=== PATIENT | male | born 1985 | race Caucasian/White ===

== ENCOUNTER 2019-08-04 10:55 | Outpatient (RCR) | payer BC, MEDICAID, SELFPAY | END 2020-01-01 11:05 | disposition home or self-care (01) | LOC: ANHAUDIO 10:55 | DX: Z46.1 Encounter for fitting and adjustment of hearing aid (principal) | CPT/HCPCS: 99002 ==

== ENCOUNTER 2021-04-11 11:19 | Outpatient (CLI) | payer OTHER, MEDICAID, SELFPAY | END 2021-04-11 11:20 | disposition home or self-care (01) | LOC: ANHAUDIO 11:22 | PROVIDERS: PCP Internal Medicine; Visit Provider Internal Medicine | DX: H90.3 Sensorineural hearing loss, bilateral (principal) | CPT/HCPCS: 92553; 92555; 92567 ==

== ENCOUNTER 2021-07-08 12:53 | Outpatient (RCR) | payer OTHER, MEDICAID, SELFPAY | END 2021-07-08 23:59 | disposition home or self-care (01) | LOC: ANHAUDIO 12:53 | PROVIDERS: PCP Internal Medicine; Visit Provider Internal Medicine | DX: Z46.1 Encounter for fitting and adjustment of hearing aid (principal) | CPT/HCPCS: V5160; V5261; V5264 ==

== ENCOUNTER 2023-09-05 19:59 | Inpatient (IN) | payer MEDICARE, OTHER, MEDICAID, SELFPAY ==
[2023-09-05] VITALS (19 sets, daily range): BP systolic 123–146; BP diastolic 85–94; PULSE 111–146; RESP 23–40; TEMP 36.5; O2SAT 90–100
--- NOTE | ~2023-09-05 | XR_ITS ---
XR chest 1V portable 09/05/2023 21:16 Indication: Dyspnea. Covid positive. Procedure: AP portable chest Comparison: No prior studies for comparison. Findings: Bilateral perihilar interstitial infiltrates. No pleural effusion or pneumothorax. Cardiome angel. Impression: 1: Bilateral perihilar interstitial infiltrates which may reflect mild edema or pneumonia. Reviewed, dictated and finalized at location [facility] [employer] [employer] Impression: 1: Bilateral perihilar interstitial infiltrates which may reflect mild edema or pneumonia.
--- NOTE | ~2023-09-05 | CT_ITS ---
Clinical Indication: Dyspnea CT Scan of the Chest with Contrast: Technique: Contiguous sections were acquired throughout the chest after intravenous administration of 100 cc of Omnipaque 350. Dose reduction technique was used on this scan by utilizing automated expos ure control and iterative reconstruction technique. The dose-length product (DLP) was 614.99 mGy-cm. Findings: There are mildly prominent bilateral axillary lymph nodes, nonspecific. No mediastinal or hilar lymph adenopathy. No large central pulmonary embolus seen. Respiratory motion artifact limits evaluation fo r smaller, more distal pulmonary emboli. There is no evidence of aortic dissection or aneurysm. Reflu x of contrast into the IVC noted. There is no evidence of pleural or pericardial effusion. There is extensive, patchy groundglass pulmonary disease. Images through the upper abdomen reveal no abnormalities. Impression: No large central pulmonary embolus seen. Respiratory motion artifact limits evaluation for smaller, m ore distal pulmonary emboli. Probable extensive groundglass pulmonary disease. Likely diagnostic positions include infectious etio logies, pulmonary edema, or other inflammatory conditions., Correlation required. Reflux of contrast into the IVC can be seen in the setting of right heart dysfunction. Correlate clin ically. Reviewed, dictated and finalized at location . [facility] Impression: No large central pulmonary embolus seen. Respiratory motion artifact limits ravi luation for smaller, more distal pulmonary emboli. Probable extensive groundglass pulmonary disease. Likely diagnostic positions i nclude infectious etiologies, pulmonary edema, or other inflammatory conditions ., Correlation required. Reflux of contrast into the IVC can be seen in the setting of right heart dysfu nction. Correlate clinically.
--- NOTE | 2023-09-05 20:53 | ECG_ITS ---
Measurements Intervals [place] Rate: 140 P: ME: 0 QRS: 174 QRSD: 103 T: -10 QT: 301 QTc: 461 Interpretive Statements SUPRAVENTRICULAR TACHYCARDIA INDETERMINATE AXIS INCOMPLETE RIGHT BUNDLE BRANCH BLOCK [90+ ms QRS DURATION, TERMINAL R IN V1/V2, 40+ ms S IN I/aVL/V4/V5/V6] POOR R-WAVE PROGRESSION ABNORMAL ECG NO PREVIOUS ECG AVAILABLE FOR COMPARISON Electronically Signed On 09-06-2023 15:04:34 MANAGER PATIENT by Phani Menon M.D.
[2023-09-05 21:02] LABS: Basophils Absolute Auto 0.1 K/mm3 (0.0-0.1); Basophils Percent Auto 0.4 % (0.2-1.2); Hematocrit 44.7 % (42.0-52.0); Hemoglobin 15.3 g/dL (14.0-18.0); Immature Granulocyte Absolute 0.16 K/mm3 (0.00-0.031); Immature Granulocyte Percent A 0.8 % (0-0.5); Lymphocytes Absolute Auto 0.74 K/mm3 (0.9-3.2); Lymphocytes Percent Auto 3.8 % (18.3-44.2); Mean Corpuscular HGB Conc 34.2 g/dl (32-36); Mean Corpuscular Hemoglobin 29.4 pg (26-34); Mean Corpuscular Volume 85.8 fl (80-100); Mean Platelet Volume 10.1 fl (7.4-10.4); Monocytes Absolute Auto 1.7 K/mm3 (0.1-0.6); Monocytes Percent Auto 8.7 % (2.6-8.5); Neutrophils Percent Auto 86.3 % (45.5-73.1); Platelet Count Result 263 k/mm3 (150-375); Red Blood Count 5.21 M/mm3 (4.6-6.20); Red Cell Distribution Width 12.7 % (11.5-14.5); White Blood Count 19.7 K/mm3 (4.5-10.0)
[2023-09-05 21:21] LABS: Alanine Aminotransferase 19 U/L (6-50); Albumin Level 4.1 g/dL (3.5-5.1); Alkaline Phosphatase 87 U/L (38-126); Anion Gap 14 mmol/L (8-16); Aspartate Amino Transferase 26 U/L (17-59); Bilirubin,Total 2.6 mg/dL (0.2-1.3); Blood Urea Nitrogen 17 mg/dL (9-20); Calcium 8.4 mg/dL (8.4-10.2); Carbon Dioxide 18 mmol/L (22-30); Chloride 102 mmol/L (98-107); Estimated CRCL calculation 64 ml/min; Estimated Glomerular Filt Rate > 60; Glucose 214 mg/dL (65-110); Potassium 3.2 mmol/L (3.4-5.0); Sodium 134 mmol/L (137-145)
[2023-09-05 21:22] LABS: Influenza A QL RT-PCR Negative (Negative); Influenza B QL RT-PCR Negative (Negative); RSV RNA, RT-PCR Negative (Negative); SARS-CoV-2 RNA PCR Negative (Negative)
[2023-09-05] MEDS: SODIUM CHLORIDE 0.9% IV 1,000 ML 999 ML IV CONT ×3 (21:25→22:34)
[2023-09-05 21:34] LABS: Alveolar/Arterial O2 Gradient 94.9 mmHg; Fractional Inspired Oxygen 28 %; HCO3 ABG 19.3 mEq/l (22.0-26.0); Oxygen Content ABG 20.1 %vol (16.0-22.0); Oxygen Saturation ABG 96.3 % (95.0-100.0); Oxyhemoglobin 94.1 % THb (90.0-100.0); PCO2 ABG 25.3 mmHg (35.0-45.0); PO2 ABG 74.9 mmHg (80.0-100.0); PO2 FiO2 Ratio Arterial Blood 2.67 %; Total Hemoglobin 15.2 g/dL (12.0-18.0); pH ABG 7.501 (7.350-7.450)
[2023-09-05 21:37] LABS: Device NASAL CANNULA; Modified Allen's Test Pass; Site Drawn RIGHT RADIAL
[2023-09-05 22:04] LABS: INR 1.3; Partial Thromboplastin Time 31.6 SECONDS (22.3-36.8)
[2023-09-05 22:15] LABS: Lactic Acid Reflex 1.7 mmol/L (0.7-2.0); Magnesium 1.9 mg/dL (1.6-2.3)
[2023-09-05 22:34] LABS: NT Pro B Type Natriuretic Pept 10300 pg/mL (19.9-100); Procalcitonin 1.7 ng/mL; Troponin I 0.431 ng/mL (0.000-0.034)
[2023-09-05] MEDS: AZITHROMYCIN 500 MG/NS 250 ML 500 MG/250 ML BAG 250 MG IVPB (23:37)
[2023-09-06] VITALS (82 sets, daily range): BP systolic 104–142; BP diastolic 72–94; PULSE 84–120; RESP 20–42; TEMP 36.3; O2SAT 94–100; BMI 31.8
--- NOTE | 2023-09-06 | ECG_ITS ---
Measurements Intervals [place] Rate: 109 P: 13 IL: 143 QRS: 24 QRSD: 123 T: -12 QT: 372 QTc: 502 Interpretive Statements SINUS TACHYCARDIA POSSIBLE LEFT ATRIAL ENLARGEMENT [-0.1mV P-WAVE IN V1/V2] INDETERMINATE AXIS INCOMPLETE rIGHT BUNDLE BRANCH BLOCK [120+ ms QRS DURATION, UPRIGHT V1, 40+ ms S IN I/aVL/V4/V5/V6] ABNORMAL ECG COMPARED TO ECG 09/05/2023 20:55:30 SINUS RHYTHM REPLACES SVT Electronically Signed On 09-06-2023 15:06:32 SHROUD LINE TIER by Phani Menon M.D.
--- NOTE | 2023-09-06 | ECHO_ITS ---
Patient Info Name: Derick Eldridge Age: 37 years : 1985 Gender: Male Ht: 64 in Wt: 169 lbs BSA: 1.88 m2 HR: 96 bpm BP: 118 / 78 mmHg Heart Rhythm: Sinus Rhythm Technical Quality: Poor Exam Date: 09/06/2023 1:33 PM Exam Location: Echo Lab Patient Status: Inpatient Admit Date: 09/06/2023 Staff Ordering Physician: Catalina Stewart DO Insurance Adjuster: Kaley Bales RDCS Attending Provider: Gilma Rodriguez DO Referring Physician: Pat SOMMERS; Exam Type: CA echo dop color flow w con Study Info Indications R06.02 - Shortness of breath Complete two-dimensional, color flow and Doppler transthoracic echocardiogram is performed with contrast to opacify the left ventricle and to improve the deliniation of the left ventricle endocardial borders. Contrast/Agitated Saline Contrast/Ag. Saline: Definity Amount: 4.00 ml Administered By: Kaley Bales RDCS Existing IV Access: Yes IV Access Condition: patent with no signs of infiltration Reason for Poor Study: poor echocardiographic windows Summary 1. Technically challenging exam/definity contrast utilized. 2. Normal left ventricular size and systolic function. 3. Right ventricular enlargement with reduced systolic function. 4. No obvious valvular abnormalities. Left Ventricle Left ventricular chamber dimension is normal. Left ventricular systolic function is normal, estimated at 60-65%. The left ventricular diastolic function is grade I diastolic dysfunction. Right Ventricle Right ventricular chamber dimension is moderately enlarged. Right ventricular systolic function is reduced. Left Atria Left atrial chamber dimension is normal. Right Atria Right atrial chamber dimension is not well visualized. Aortic Valve The aortic valve is normal. Pulmonic Valve The pulmonic valve is not well visualized. Mitral Valve The mitral valve has normal leaflets. Tricuspid Valve The tricuspid valve leaflets are not well visualized. Pericardium/Pleural The pericardium appears normal. Aorta The aortic root size at the sinus of Valsalva is normal. Left Ventricular Outflow Tract Name Value Normal LVOT 2D LVOT Diameter 1.98 cm LVOT Doppler LVOT Peak Gradient 5 mmHg LVOT Mean Gradient 3 mmHg LVOT VTI 21.52 cm LVOT VTI/AV VTI Ratio 1.01 LVOT Stroke Volume 66.47 ml LVOT CO 6.21 l/min LVOT CI 3.30 L/min/m2 Pulmonic Valve Name Value Normal RVOT Doppler RVOT Peak Gradient 1 mmHg PV Doppler PV Peak Gradient 2 mmHg Mitral Valve Name Value
--- NOTE | 2023-09-06 00:37 | ED.GENADULT ---
HPI - General Adult General Chief complaint: Shortness of Breath/Dyspnea Stated complaint: SOB, covid + Time Seen by Provider: 09/05/23 20:52 History of Present Illness HPI narrative: Patient is a 37-year-old gentleman who presents to the emergency department with chief complaint of cough shortness of breath tachycardia and positive COVID test at home. The patient went to a blue scan on night and started having cough shortness of breath since then the patient has progressed and gotten much worse the trimming caser notice that he was being very short of breath and was concerned and decided to bring him to the hospital after he tested positive for COVID-19 patient is not normally oxygen requiring and was 88% on room air upon initial arrival. Related Data Allergies Allergy/AdvReac Type Severity Reaction Status Date / Time No Known Allergies Allergy Verified 09/05/23 21:22 Review of Systems Review of Systems: A 10 system review of systems was completed on the patient and is negative except for what is stated in the HPI. Nursing and ancillary documentation was reviewed. Exam Narrative: GENERAL: Ill-appearing, well-nourished, and in mild acute respiratory distress. HEAD: Normocephalic, atraumatic. EYES: PERRLA and EOMI. ENT: Nares clear, no rhinorrhea or epistaxis. Mucous membranes moist. NECK: Supple. CHEST: Coarse breath sounds to auscultation. Mild respiratory distress. HEART: Tachycardia rate and rhythm. No murmur heard. Normal peripheral pulses. ABDOMEN: Soft, nontender, nondistended, normal active bowel sounds. EXTREMITIES: Normal range of motion. No edema. SKIN: Warm, dry, no rash. NEURO: No focal deficits. Alert and oriented x3. PSYCH: Normal mood and affect. Course Vital Signs Vital signs: Vital Signs Temperature 36.5 C 09/05/23 20:32 Pulse Rate 142 H 09/05/23 20:32 Respiratory Rate 35 H 09/05/23 20:32 Blood Pressure 146/87 H 09/05/23 20:32 Pulse Oximetry 91 09/05/23 20:32 Oxygen Delivery Room Air 09/05/23 20:32 Temperature 36.5 C 09/05/23 20:32 Pulse Rate 110 H 09/06/23 01:16 Respiratory Rate 34 H 09/06/23 01:16 Blood Pressure 142/93 H 09/06/23 01:16 Pulse Oximetry 95 09/06/23 01:16 Oxygen Delivery Nasal Cannula 09/05/23 20:50 Oxygen Flow Rate 2 09/05/23 20:50 Medical Decision Making Vital Signs Vital Signs: Vital Signs Temperature 36.5 C 09/05/23 20:32 Pulse Rate 142 H 09/05/23 20:32 Respiratory Rate 35 H 09/05/23 20:32 Blood Pressure 146/87 H 09/05/23 20:32 Pulse Oximetry 91 09/05/23 20:32 Oxygen Delivery Room Air 09/05/23 20:32 Temperature 36.5 C 09/05/23 20:32 Pulse Rate 110 H 09/06/23 01:16 Respiratory Rate 34 H 09/06/23 01:16 Blood Pressure 142/93 H 09/06/23 01:16 Pulse Oximetry 95 09/06/23 01:16 Oxygen Delivery Nasal Cannula 09/05/23 20:50 Oxygen Flow Rate 2 09/05/23 20:50 Lab Data 09/05/23 20:57 09/05/23 20:57 Labs: Lab Results 09/05/23 09/05/23 09/05/23 Range/Units 20:33 20:57 21:45 WBC 19.7 H (4.5-10.0) K/mm3 RBC 5.21 (4.6-6.20) M/mm3 Hgb 15.3 (14.0-18.0) g/dL Hct 44.7 (42.0-52.0) % MCV 85.8 (80-100) fl MCH 29.4 (26-34) pg MCHC 34.2 (32-36) g/dl RDW 12.7 (11.5-14.5) % Plt Count 263 (150-375) k/mm3 MPV 10.1 (7.4-10.4) fl Immature Gran % (Auto) 0.8 H (0-0.5) % Neut % (Auto) 86.3 H (45.5-73.1) % Lymph % (Auto) 3.8 L (18.3-44.2) % [place] % (Auto) 8.7 H (2.6-8.5) % Eos % (Auto) 0.0 (0-4.4) % Baso % (Auto) 0.4 (0.2-1.2) % Lymph # (Auto) 0.74 L (0.9-3.2) K/mm3 [place] # (Auto) 1.7 H (0.1-0.6) K/mm3 Eos # (Auto) 0.0 (0-0.3) K/mm3 Baso # (Auto) 0.1 (0.0-0.1) K/mm3 Abs Immat Gran (auto) 0.16 H (0.00-0.031) K/mm3 Absolute Neuts (auto) 17.0 H (1.3-6.7) K/mm3 Absolute Nucleated RBC 0.0 (0.0-0.012) K/mm3 Nucleated RBC % 0.0 (0.0-0.2)
[2023-09-06 02:04] LABS: Troponin I 0.385 ng/mL (0.000-0.034)
[2023-09-06] MEDS: ALBUTEROL SULFATE NEB 2.5 MG/3 ML INH INHALATION ×3 (02:07→21:11)
[2023-09-06] MEDS: IPRATROPIUM BR 0.02% INH SOLN 0.5 MG/2.5 ML VIAL INHALATION ×3 (02:07→21:15)
[2023-09-06] MEDS: POTASSIUM CHLORIDE 20 MEQ PACKET (FOR LIQUID) 40 MEQ PO (03:26)
[2023-09-06] MEDS: ASPIRIN 81 MG CHEWABLE TABLET 324 MG PO (03:27)
--- NOTE | 2023-09-06 03:44 | PM.IMHP ---
H&P: HPI History of Present Illness Date/Time: 09/06/23 03:44 Chief Complaint: Short of breath, COVID positive Narrative: 37-year-old male with past medical history of intellectual disability, obesity and chronic hearing loss who presented to the ER from assisted living due to shortness of breath and positive at home COVID test. The patient complaints of cough and shortness of breath. The patient went to a [employer] game on . After the game he began having cough and shortness of breath. His cough has progressively gotten worse. Tonight the staff at the living facility noticed that the patient started having coughing and output of his mouth that appeared somewhat brown in color. Patient is noted to have some small amount of bleeding from his left naris the time my evaluation. Patient does not usually wear oxygen at home but at home with satting 80% on room air. The staff brought him into the ER for evaluation. He denies any chest pain. He has been having some decreased oral intake. He has also been having 7-8 loose stools a day for the last couple of days. He denies any recent antibiotic use. His stools have been yellow and light in color. He denies any hematochezia or melena. He reports that he has been urinating I usual amount his urine has not been dark or foul-smelling. He denies any significant fever or chills. Source of information comes from ER report, patient report and patient's father who is at bedside. Patient provided permission to discuss his medical care for his father. Patient's father is his legal guardian. Despite is a intellectual disability the patient is a good historian. Review of Systems Review of Systems: 12 systems were reviewed with pertinent positives and negatives per HPI. Except as documented in the HPI, all other systems were reviewed and are negative. [facility] Past Medical History Medical History (Updated 09/06/23 @ 09:38 by Gilma Rodriguez DO) Hearing loss of both ears Since childhood possibly due to antibiotic use as preemie Intellectual disability Father reports history of anoxic brain injury at Obesity Surgical History Surgical History (Updated 09/06/23 @ 09:19 by Gilma Rodriguez DO) History of throat surgery History of tonsillectomy and adenoidectomy History of tympanostomy tube placement Family History Family History (Updated 09/06/23 @ 09:20 by Gilma Rodriguez DO) Grandparent Diabetes mellitus Father Healthy adult Mother Healthy adult Social History Social History (Updated 09/06/23 @ 09:20 by Gilma Rodriguez DO) Social History: The patient lives in an assisted living facility. His parents are his legal guardians. He is a lifelong nonsmoker and does not drink alcohol. He works at [employer]. Code status: Full code Surrogate decision maker: Parents Meds Home Medications and Allergies Home Medications Medication Instructions Recorded Confirmed Type ibuprofen 800 mg tablet mg 09/06/23 History tramadol 50 mg tablet mg 09/06/23 History Allergies Allergy/AdvReac Type Severity Reaction Status Date / Time No Known Allergies Allergy Verified 09/05/23 21:22 Vital Signs Vital Signs - 24 hr 09/05/23 20:32 09/05/23 21:09 09/05/23 20:50 Temperature 97.7 F Pulse Rate 142 H 146 H Respiratory Rate 35 H Blood Pressure 146/87 H Pulse Oximetry 91 96 Oxygen Delivery Room Air Nasal Cannula Oxygen Flow Rate 2 09/05/23 20:43 09/05/23 21:02 09/05/23 21:15 Temperature Pulse Rate 134 H 138 H 131 H Respiratory Rate 39 H 36 H 36 H Blood Pressure 123/88 Pulse Oximetry 94 97 96 Oxygen Delivery Oxygen Flow Rate 09/05/23 21:16 09/05/23 21:30 09/05/23 21:45 Temperature Pulse Rate 128 H 123 H 115 H Respiratory Rate 33 H 26 H 25 H Blood Pressure Pulse Oximetry 96 100 99 Oxygen Delivery Oxygen Flow Rate 09/05/23 21:46 09/05/23 22:02 09/05/23 22:20 Temperature Pulse Rate
[2023-09-06 03:50] LABS: Appearance Urine Clear (Clear); Bacteria Urine None Seen /hpf; Bilirubin Urine Negative (Negative); Blood Urine 2+ (Negative); Color Urine Dark Yellow (Yellow); Glucose Urine UA Negative (Negative); Ketones Urine Trace mg/dL (Negative); Leukocyte Esterase Ur Negative LEU/UL (Negative); Nitrate Urine Negative (Negative); Non Pathogenic Casts 0-2; Protein Urine 3+ mg/dL (Negative); RBC Urine 0-2 /hpf (0-2); Squamous Epithelial Cell Urine Few /hpf (Few); WBC Urine 0-5 /hpf; pH Urine 5.5 (5.0-9.0)
[2023-09-06 04:27] LABS: Add Urine Microscopic? YES; Specific Grav Ur 1.072 (1.001-1.035)
[2023-09-06 09:23] LABS: Troponin I 0.185 ng/mL (0.000-0.034)
[2023-09-06 09:28] LABS: Basophils Percent Auto 0.3 % (0.2-1.2); Hematocrit 40.1 % (42.0-52.0); Hemoglobin 13.5 g/dL (14.0-18.0); Immature Granulocyte Absolute 0.13 K/mm3 (0.00-0.031); Immature Granulocyte Percent A 1.1 % (0-0.5); Lymphocytes Percent Auto 4.2 % (18.3-44.2); Mean Corpuscular HGB Conc 33.7 g/dl (32-36); Mean Corpuscular Hemoglobin 29.4 pg (26-34); Mean Corpuscular Volume 87.4 fl (80-100); Mean Platelet Volume 10.2 fl (7.4-10.4); Monocytes Absolute Auto 0.5 K/mm3 (0.1-0.6); Monocytes Percent Auto 4.2 % (2.6-8.5); Neutrophils Absolute Auto 10.8 K/mm3 (1.3-6.7); Neutrophils Percent Auto 90.2 % (45.5-73.1); Platelet Count Result 187 k/mm3 (150-375); Red Blood Count 4.59 M/mm3 (4.6-6.20)
[2023-09-06 09:55] LABS: Alanine Aminotransferase 32 U/L (6-50); Albumin Level 3.6 g/dL (3.5-5.1); Alkaline Phosphatase 73 U/L (38-126); Anion Gap 10 mmol/L (8-16); Aspartate Amino Transferase 43 U/L (17-59); Bilirubin,Total 1.1 mg/dL (0.2-1.3); Blood Urea Nitrogen 18 mg/dL (9-20); Calcium 7.8 mg/dL (8.4-10.2); Carbon Dioxide 19 mmol/L (22-30); Chloride 111 mmol/L (98-107); Estimated CRCL calculation 82 ml/min; Estimated Glomerular Filt Rate > 60; Glucose 167 mg/dL (65-110); Potassium 4.3 mmol/L (3.4-5.0); Sodium 140 mmol/L (137-145)
[2023-09-06 10:30] LABS: Hemoglobin A1C 4.9 % (<5.7)
[2023-09-06] MEDS: SODIUM CHLORIDE 0.9% IV 1,000 ML 100 ML IV CONT ×2 (11:27→20:18)
[2023-09-06] MEDS: PERFLUTREN LIPID MICROSPHERES 1.5 ML VIAL DILUTED TO 10 ML TOTAL VOLUME IV PUSH (14:02)
--- NOTE | 2023-09-06 14:26 | IVDEFINITY ---
Prior to administration of IV Definity the patient was educated on the risks and benefits of the imaging enhancing agent including potential adverse side effects. The patient verbalized understanding. Allergies were verified. No exclusion criteria were identified and at least one of the following inclusion criteria were met: 1) physician request, 2) patient technically difficult to image (per the [place] [employer]chocardi[employer] guidelines of two or more segments not discernable within the apical view), or 3) questionable left ventricular function. ?
--- NOTE | 2023-09-06 14:31 | PC.NURSE ---
This patient, Derick Eldridge, was admitted to Medical Room 340-01. Patient/family oriented to hospital policies and general routines including ID bracelet, bed and alarms, visiting hours, pain management, procedures, bathroom and other care routines, personal items, smoking policy, room service/diet, and visiting hours. Information on how to activate the Rapid Response Team has been discussed. Patient/Family are encouraged to report perceived risks to care and to ask questions if they do not understand what they are told or what they should do.
[2023-09-06] MEDS: AZITHROMYCIN 500 MG/NS 250 ML 500 MG/250 ML BAG 250 MG IVPB (20:18)
[2023-09-06 21:11] LABS: Glucose Point of Care 159 mg/dl (65-105)
[2023-09-07] VITALS (14 sets, daily range): BP systolic 117–118; BP diastolic 78–87; PULSE 78–113; RESP 18–32; TEMP 36.2–36.7; O2SAT 97–100
[2023-09-07 05:54] LABS: Basophils Percent Auto 0.3 % (0.2-1.2); Hematocrit 34.7 % (42.0-52.0); Hemoglobin 11.5 g/dL (14.0-18.0); Immature Granulocyte Absolute 0.17 K/mm3 (0.00-0.031); Immature Granulocyte Percent A 1.3 % (0-0.5); Lymphocytes Absolute Auto 0.89 K/mm3 (0.9-3.2); Lymphocytes Percent Auto 7.1 % (18.3-44.2); Mean Corpuscular HGB Conc 33.1 g/dl (32-36); Mean Corpuscular Hemoglobin 29.5 pg (26-34); Mean Platelet Volume 10.6 fl (7.4-10.4); Monocytes Absolute Auto 0.9 K/mm3 (0.1-0.6); Monocytes Percent Auto 6.8 % (2.6-8.5); Neutrophils Absolute Auto 10.7 K/mm3 (1.3-6.7); Neutrophils Percent Auto 84.5 % (45.5-73.1); Platelet Count Result 185 k/mm3 (150-375); Red Cell Distribution Width 13.2 % (11.5-14.5); White Blood Count 12.6 K/mm3 (4.5-10.0)
[2023-09-07 06:03] LABS: Alanine Aminotransferase 27 U/L (6-50); Albumin Level 3.1 g/dL (3.5-5.1); Alkaline Phosphatase 66 U/L (38-126); Anion Gap 9 mmol/L (8-16); Aspartate Amino Transferase 28 U/L (17-59); Bilirubin,Total 0.7 mg/dL (0.2-1.3); Blood Urea Nitrogen 21 mg/dL (9-20); Carbon Dioxide 21 mmol/L (22-30); Chloride 111 mmol/L (98-107); Estimated CRCL calculation 106 ml/min; Estimated Glomerular Filt Rate > 60; Glucose 122 mg/dL (65-110); Sodium 141 mmol/L (137-145)
[2023-09-07] MEDS: IPRATROPIUM BR 0.02% INH SOLN 0.5 MG/2.5 ML VIAL INHALATION ×3 (07:00→21:30)
[2023-09-07] MEDS: ALBUTEROL SULFATE NEB 2.5 MG/3 ML INH INHALATION ×3 (07:00→21:30)
[2023-09-07] MEDS: SODIUM CHLORIDE 0.9% IV 1,000 ML 100 ML IV CONT ×2 (08:59→20:29)
[2023-09-07] MEDS: DEXAMETHASONE 2 MG TABLET 6 MG PO (09:05)
--- NOTE | 2023-09-07 09:52 | PM.IMPN ---
Progress Note: A&P Assessment and Plan (1) Sepsis: Qualifiers: Sepsis type: sepsis due to unspecified organism Sepsis acute organ dysfunction status: with acute organ dysfunction Severe sepsis acute organ dysfunction type: acute respiratory failure Acute respiratory failure type: with hypoxia Severe sepsis shock status: without septic shock Qualified Code(s): A41.9 - Sepsis, unspecified organism; R65.20 - Severe sepsis without septic shock; J96.01 - Acute respiratory failure with hypoxia Code(s): A41.9 - Sepsis, unspecified organism Status: Acute Assessment and Plan: Multifocal pneumonia with tachycardia and elevated white blood cell. (2) Acute hypoxic respiratory failure: Code(s): J96.01 - Acute respiratory failure with hypoxia Status: Acute Assessment and Plan: Patient remains supplemental oxygenation by nasal cannula, CTA negative for PE did show diffuse bilateral pneumonia (3) Bilateral pneumonia: Qualifiers: Pneumonia type: due to unspecified organism Lung location: unspecified part of lung Qualified Code(s): J18.9 - Pneumonia, unspecified organism Code(s): J18.9 - Pneumonia, unspecified organism Status: Acute Assessment and Plan: See 1-2 (4) Elevated troponin: Code(s): R79.89 - Other specified abnormal findings of blood chemistry Status: Acute Assessment and Plan: Troponins initially elevated and down trending over 6 hours. Suspect this was demand ischemia from a tachycardia related to sepsis. Initial EKG difficult to see P waves but once he got some fluids at slow down clear P-waves are evident leading to likely sinus tachycardia. Cardiology had been consulted but had not yet seen the patient. He is denying chest pain. Patient is very stable a cardiac standpoint at this time. Consult canceled. Heart rate normal sinus rhythm telemetry per my interpretation. Telemetry discontinued. (5) Acute respiratory alkalosis: Code(s): E87.3 - Alkalosis Status: Acute Assessment and Plan: Hyperventilation syndrome related to pneumonia. (6) Epistaxis: Code(s): R04.0 - Epistaxis Status: Acute Assessment and Plan: Minor epistaxis that has since resolved (7) Dehydration with hyponatremia: Code(s): E86.0 - Dehydration; E87.1 - Hypo-osmolality and hyponatremia Status: Acute Assessment and Plan: Sodium corrected from 134-141 over the course 48 hours. (8) Hyperglycemia: Code(s): R73.9 - Hyperglycemia, unspecified Status: Acute Assessment and Plan: Likely related to sepsis no known history of diabetes. Will add A1c Plan Continue IV antibiotics Add oral dexamethasone COVID swab repeated, negative flu negative RSV negative COVID MRSA nares PCR negative Apnea link has been ordered by previous provider Continue to titrate oxygen Cancel cardiology consult and DC telemetry as patient is stable from a cardiac standpoint Diet: Heart healthy DVT prophylaxis: SCDs no Lovenox due to recent nasal bleeding GI prophylaxis: Not indicated Code status: full code Disposition: Return to [facility] when medically stable Time Spent With Patient Time with patient: Greater than 35 minutes Subjective Date/time seen: 09/07/23 09:52 Interval history: 09/06: 37-year-old male with past medical history of intellectual disability, obesity and chronic hearing loss who presented to the ER from assisted living due to shortness of breath and positive at home COVID test.? The patient complaints of cough and shortness of breath.? The patient went to a [employer] game on .? After the game he began having cough and shortness of breath.? His cough has progressively gotten worse.? Tonight the staff at the living facility noticed that the patient started having coughing and output of his mouth that appeared somewhat brown in color.? Patient is noted to have some small amount of bleeding
[2023-09-07 13:19] LABS: Influenza A QL RT-PCR Negative (Negative); Influenza B QL RT-PCR Negative (Negative); RSV RNA, RT-PCR Negative (Negative); SARS-CoV-2 RNA PCR Negative (Negative)
[2023-09-07 13:57] LABS: MRSA (PCR) NOT DETECTED (NOT DETECTE)
[2023-09-07 14:26] LABS: Procalcitonin 1.1 ng/mL
[2023-09-07] MEDS: cefTRIAXone 2 GM/NS 100 ML 2 GM/100 ML BAG IVPB (14:54)
[2023-09-07] MEDS: AZITHROMYCIN 500 MG/NS 250 ML 500 MG/250 ML BAG 250 MG IVPB (20:30)
[2023-09-07 21:50] LABS: Hemoglobin A1C 4.9 % (<5.7)
[2023-09-08] VITALS (14 sets, daily range): BP systolic 110–126; BP diastolic 70–79; PULSE 68–81; RESP 16–21; TEMP 36.4–37; O2SAT 93–100
[2023-09-08] MEDS: IPRATROPIUM BR 0.02% INH SOLN 0.5 MG/2.5 ML VIAL INHALATION ×4 (03:03→21:02)
[2023-09-08] MEDS: ALBUTEROL SULFATE NEB 2.5 MG/3 ML INH INHALATION ×4 (03:03→21:02)
[2023-09-08 05:46] LABS: Basophils Percent Auto 0.4 % (0.2-1.2); Hematocrit 35.1 % (42.0-52.0); Hemoglobin 11.4 g/dL (14.0-18.0); Immature Granulocyte Absolute 0.43 K/mm3 (0.00-0.031); Immature Granulocyte Percent A 5.1 % (0-0.5); Lymphocytes Absolute Auto 0.86 K/mm3 (0.9-3.2); Lymphocytes Percent Auto 10.3 % (18.3-44.2); Mean Corpuscular HGB Conc 32.5 g/dl (32-36); Mean Corpuscular Hemoglobin 29.5 pg (26-34); Mean Corpuscular Volume 90.7 fl (80-100); Mean Platelet Volume 10.5 fl (7.4-10.4); Monocytes Absolute Auto 0.5 K/mm3 (0.1-0.6); Monocytes Percent Auto 6.3 % (2.6-8.5); Neutrophils Absolute Auto 6.5 K/mm3 (1.3-6.7); Neutrophils Percent Auto 77.9 % (45.5-73.1); Platelet Count Result 188 k/mm3 (150-375); Red Blood Count 3.87 M/mm3 (4.6-6.20); Red Cell Distribution Width 13.4 % (11.5-14.5); White Blood Count 8.4 K/mm3 (4.5-10.0)
[2023-09-08 06:04] LABS: Alanine Aminotransferase 27 U/L (6-50); Albumin Level 3.2 g/dL (3.5-5.1); Alkaline Phosphatase 60 U/L (38-126); Anion Gap 6 mmol/L (8-16); Aspartate Amino Transferase 25 U/L (17-59); Bilirubin,Total 0.6 mg/dL (0.2-1.3); Blood Urea Nitrogen 18 mg/dL (9-20); Calcium 8.3 mg/dL (8.4-10.2); Carbon Dioxide 25 mmol/L (22-30); Chloride 107 mmol/L (98-107); Estimated CRCL calculation 98 ml/min; Estimated Glomerular Filt Rate > 60; Glucose 109 mg/dL (65-110); Potassium 3.9 mmol/L (3.4-5.0); Sodium 138 mmol/L (137-145)
[2023-09-08 07:11] LABS: Procalcitonin 0.5 ng/mL
[2023-09-08] MEDS: DEXAMETHASONE 2 MG TABLET 6 MG PO (08:04)
[2023-09-08] MEDS: cefTRIAXone 2 GM/NS 100 ML 2 GM/100 ML BAG IVPB (08:10)
--- NOTE | 2023-09-08 11:58 | PM.IMPN ---
Progress Note: A&P Assessment and Plan (1) Sepsis: Qualifiers: Sepsis type: sepsis due to unspecified organism Sepsis acute organ dysfunction status: with acute organ dysfunction Severe sepsis acute organ dysfunction type: acute respiratory failure Acute respiratory failure type: with hypoxia Severe sepsis shock status: without septic shock Qualified Code(s): A41.9 - Sepsis, unspecified organism; R65.20 - Severe sepsis without septic shock; J96.01 - Acute respiratory failure with hypoxia Code(s): A41.9 - Sepsis, unspecified organism Status: Acute Assessment and Plan: Multifocal pneumonia with tachycardia and elevated white blood cell. 12/: White blood cell count, CRP, procalcitonin all improving. Patient weaned to room air. (2) Acute hypoxic respiratory failure: Code(s): J96.01 - Acute respiratory failure with hypoxia Status: Acute Assessment and Plan: Patient remains supplemental oxygenation by nasal cannula, CTA negative for PE did show diffuse bilateral pneumonia 09/08: Weaned to room air today (3) Bilateral pneumonia: Qualifiers: Pneumonia type: due to unspecified organism Lung location: unspecified part of lung Qualified Code(s): J18.9 - Pneumonia, unspecified organism Code(s): J18.9 - Pneumonia, unspecified organism Status: Acute Assessment and Plan: See 1-2 (4) Elevated troponin: Code(s): R79.89 - Other specified abnormal findings of blood chemistry Status: Acute Assessment and Plan: Troponins initially elevated and down trending over 6 hours. Suspect this was demand ischemia from a tachycardia related to sepsis. Initial EKG difficult to see P waves but once he got some fluids at slow down clear P-waves are evident leading to likely sinus tachycardia. Cardiology had been consulted but had not yet seen the patient. He is denying chest pain. Patient is very stable a cardiac standpoint at this time. Consult canceled. Heart rate normal sinus rhythm telemetry per my interpretation. Telemetry discontinued. (5) Acute respiratory alkalosis: Code(s): E87.3 - Alkalosis Status: Acute Assessment and Plan: Hyperventilation syndrome related to pneumonia. (6) Epistaxis: Code(s): R04.0 - Epistaxis Status: Acute Assessment and Plan: Minor epistaxis that has since resolved (7) Dehydration with hyponatremia: Code(s): E86.0 - Dehydration; E87.1 - Hypo-osmolality and hyponatremia Status: Acute Assessment and Plan: Sodium corrected from 134-141 over the course 48 hours. (8) Hyperglycemia: Code(s): R73.9 - Hyperglycemia, unspecified Status: Acute Assessment and Plan: Likely related to sepsis no known history of diabetes. Will add A1c 09/08: A1c 4.9, continue regular diet Plan Continue IV antibiotics Add oral dexamethasone COVID swab repeated, negative flu negative RSV negative COVID MRSA nares PCR negative Apnea link has been ordered by previous provider Continue to titrate oxygen Cancel cardiology consult and DC telemetry as patient is stable from a cardiac standpoint Diet: Heart healthy DVT prophylaxis: SCDs no Lovenox due to recent nasal bleeding GI prophylaxis: Not indicated Code status: full code Disposition: Return home when medically stable Time Spent With Patient Time with patient: 25 - 35 minutes Subjective Date/time seen: 09/08/23 11:58 Interval history: 09/06: 37-year-old male with past medical history of intellectual disability, obesity and chronic hearing loss who presented to the ER from assisted living due to shortness of breath and positive at home COVID test.? The patient complaints of cough and shortness of breath.? The patient went to a [employer] game on .? After the game he began having cough and shortness of breath.? His cough has progressively gotten worse.? Tonight the staff at the living facility noticed that the pat
[2023-09-08] MEDS: AZITHROMYCIN 500 MG/NS 250 ML 500 MG/250 ML BAG 250 MG IVPB (21:19)
[2023-09-09] MEDS: IPRATROPIUM BR 0.02% INH SOLN 0.5 MG/2.5 ML VIAL INHALATION (02:33)
[2023-09-09] MEDS: ALBUTEROL SULFATE NEB 2.5 MG/3 ML INH INHALATION (02:33)
[2023-09-09 02:34] VITALS: PULSE 69; RESP 20
[2023-09-09 02:41] VITALS: PULSE 72; RESP 20
[2023-09-09 05:55] LABS: Basophils Absolute Auto 0.1 K/mm3 (0.0-0.1); Hemoglobin 11.6 g/dL (14.0-18.0); Immature Granulocyte Absolute 0.57 K/mm3 (0.00-0.031); Immature Granulocyte Percent A 6.9 % (0-0.5); Lymphocytes Percent Auto 13.3 % (18.3-44.2); Mean Corpuscular HGB Conc 31.4 g/dl (32-36); Mean Corpuscular Hemoglobin 29.8 pg (26-34); Mean Corpuscular Volume 95.1 fl (80-100); Mean Platelet Volume 11.5 fl (7.4-10.4); Monocytes Absolute Auto 0.5 K/mm3 (0.1-0.6); Monocytes Percent Auto 5.6 % (2.6-8.5); Neutrophils Absolute Auto 6.1 K/mm3 (1.3-6.7); Neutrophils Percent Auto 73.2 % (45.5-73.1); Nucleated Red Blood Cells Absolute Auto 0.1 K/mm3 (0.0-0.012); Nucleated Red Blood Cells Perc 0.6 % (0.0-0.2); Platelet Count Result 137 k/mm3 (150-375); Red Blood Count 3.89 M/mm3 (4.6-6.20); Red Cell Distribution Width 13.3 % (11.5-14.5); White Blood Count 8.3 K/mm3 (4.5-10.0)
[2023-09-09 06:00] VITALS: BP 133/83; PULSE 71; RESP 18; TEMP 36.1; O2SAT 95
[2023-09-09 07:09] LABS: Procalcitonin 0.2 ng/mL
[2023-09-09] MEDS: DEXAMETHASONE 2 MG TABLET 6 MG PO (08:13)
[2023-09-09] MEDS: cefTRIAXone 2 GM/NS 100 ML 2 GM/100 ML BAG IVPB (08:13)
--- NOTE | 2023-09-09 08:48 | PM.DS ---
DS: Admitting Diagnosis Discharge Date 09/09/2023 Admitting Diagnosis sepsis, acute hypoxic respiratory failure, bilateral pneumonia, elevated troponin, acute respiratory alkalosis, epistaxis, dehydration with hyponatremia, hyperglycemia DS: Discharge Diagnosis Discharge Diagnosis (1) Sepsis: Qualifiers: Sepsis type: sepsis due to unspecified organism Sepsis acute organ dysfunction status: with acute organ dysfunction Severe sepsis acute organ dysfunction type: acute respiratory failure Acute respiratory failure type: with hypoxia Severe sepsis shock status: without septic shock Qualified Code(s): A41.9 - Sepsis, unspecified organism; R65.20 - Severe sepsis without septic shock; J96.01 - Acute respiratory failure with hypoxia Code(s): A41.9 - Sepsis, unspecified organism Status: Acute (2) Acute hypoxic respiratory failure: Code(s): J96.01 - Acute respiratory failure with hypoxia Status: Acute (3) Bilateral pneumonia: Qualifiers: Pneumonia type: due to unspecified organism Lung location: unspecified part of lung Qualified Code(s): J18.9 - Pneumonia, unspecified organism Code(s): J18.9 - Pneumonia, unspecified organism Status: Acute (4) Elevated troponin: Code(s): R79.89 - Other specified abnormal findings of blood chemistry Status: Acute (5) Acute respiratory alkalosis: Code(s): E87.3 - Alkalosis Status: Acute (6) Epistaxis: Code(s): R04.0 - Epistaxis Status: Acute (7) Dehydration with hyponatremia: Code(s): E86.0 - Dehydration; E87.1 - Hypo-osmolality and hyponatremia Status: Acute (8) Hyperglycemia: Code(s): R73.9 - Hyperglycemia, unspecified Status: Acute DS: Summary Hospital Course Reason for hospitalization: bilateral pneumonia with sepsis and hypoxia Hospital Course: 09/06: 37-year-old male with past medical history of intellectual disability, obesity and chronic hearing loss who presented to the ER from assisted living due to shortness of breath and positive at home COVID test.? The patient complaints of cough and shortness of breath.? The patient went to a [employer] game on .? After the game he began having cough and shortness of breath.? His cough has progressively gotten worse.? Tonight the staff at the living facility noticed that the patient started having coughing and output of his mouth that appeared somewhat brown in color.? Patient is noted to have some small amount of bleeding from his left naris the time my evaluation.? Patient does not usually wear oxygen at home but at home with saturating 80% on room air.? The staff brought him into the ER for evaluation.? He denies any chest pain.? He has been having some decreased oral intake.? He has also been having 7-8 loose stools a day for the last couple of days.? He denies any recent antibiotic use.? His stools have been yellow and light in color.? He denies any hematochezia or melena.? He reports that he has been urinating I usual amount his urine has not been dark or foul-smelling.? He denies any significant fever or chills. Source of information comes from ER report, patient report and patient's father who is at bedside.? Patient provided permission to discuss his medical care for his father.? Patient's father is his legal guardian.? Despite is a intellectual disability the patient is a good historian. 09/07:? Patient reportedly had positive COVID test in the outpatient setting but negative PCR in the ER.? Review images on CTA consistent with appearance of other patients with positive COVID.? We will swab again for verification.? We will also test MRSA nares.? Increase ceftriaxone to 2 g Q 24 hours.? Add dexamethasone 6 mg daily.? Patient reports that he still gets short of breath with walking but he feels better than when he was brought in.? Patient denies any other symptoms or complaints.? Family came to bedside and we discussed patient's cur
[2023-09-17 08:00] LABS: Legionella pneumophila Ag Ur Not Detected
[2023-09-20 14:28] LABS: Pneumococcal Antigen Urine Not Detected
== END 2023-09-09 13:30 | disposition home or self-care (01) | DRG 871 ==
LOC: ANHED 09-06 00:39 → ANHIMU 09-06 02:35 → ANH3MED 09-06 14:19
PROVIDERS: Nurse Practitioner; Student in an Organized Health Care Education/Training Program; Admitting Provider Internal Medicine; Emergency Provider Emergency Medicine; PCP Physician Assistant; Visit Provider Internal Medicine
DX: A41.9 Sepsis, unspecified organism (principal); J18.9 Pneumonia, unspecified organism; J96.01 Acute respiratory failure with hypoxia; E87.3 Alkalosis; E87.1 Hypo-osmolality and hyponatremia; I24.89 Other forms of acute ischemic heart disease; Z20.822 Contact with and (suspected) exposure to COVID-19; R65.20 Severe sepsis without septic shock; R04.0 Epistaxis; E86.0 Dehydration; R73.9 Hyperglycemia, unspecified; E66.9 Obesity, unspecified; Z68.34 Body mass index [BMI] 34.0-34.9, adult; F79 Unspecified intellectual disabilities; H91.90 Unspecified hearing loss, unspecified ear
CPT/HCPCS: 36415; 36600; 71045; 71275; 80053; 81001; 82805; 82948; 83036; 83605; 83735; 83880; 84145; 84484; 85025; 85610; 85730; 86140; 87040; 87449; 87637; 87641; 87899; 93005; 94640; 96361; 96365; 96367; 96375; 99285; A9270; C8929; G0378; J0456; J0696; J1100; J7030; J8540; Q9957; Q9967

== ENCOUNTER 2023-09-16 12:23 | Outpatient (CLI) | payer MEDICARE, OTHER, MEDICAID, SELFPAY ==
--- NOTE | ~2023-09-16 | XR_ITS ---
Clinical Indication: Pneumonia PA and lateral views of the chest: Comparison: 09/05/2023 Findings: The lungs are clear, without evidence of focal consolidation or pleural effusion. Cardiome diastinal silhouette is within normal limits. Bones and soft tissues are unremarkable. Impression: Normal chest. Reviewed, dictated and finalized at [facility]. TELECOM TECHNICIAN Impression: Normal chest.
== END 2023-09-16 12:24 | disposition home or self-care (01) ==
PROVIDERS: PCP Physician Assistant; Visit Provider Nurse Practitioner Adult Health
DX: J18.9 Pneumonia, unspecified organism (principal)
CPT/HCPCS: 71046

== ENCOUNTER 2025-02-05 14:49 | Outpatient (RCR) | payer SELFPAY | END 2025-02-05 23:59 | disposition home or self-care (01) | LOC: ANHAUDIO 14:49 | PROVIDERS: PCP Physician Assistant; Visit Provider Physician Assistant | DX: Z46.1 Encounter for fitting and adjustment of hearing aid (principal) | CPT/HCPCS: 92593 ==